=== PATIENT | female | born 1960 ===

== ENCOUNTER 2021-05-23 06:40 | Day surgery (SDC) | payer OTHER | END 2021-05-23 18:55 | disposition home or self-care (01) | LOC: CIR.AMB 06:40 → EDBD 12:15 → CIR.AMB 18:55 | PROVIDERS: ATTEND Orthopaedic Surgery | DX: M75.122 Complete rotator cuff tear or rupture of left shoulder, not specified as traumatic (principal); M75.22 Bicipital tendinitis, left shoulder; M25.312 Other instability, left shoulder; Z20.822 Contact with and (suspected) exposure to COVID-19 ==

== ENCOUNTER 2021-05-23 09:09 | Outpatient (CLI) | payer OTHER | END 2021-05-23 16:12 | disposition home or self-care (01) | LOC: LAB 09:09 | PROVIDERS: ATTEND Orthopaedic Surgery | DX: Z03.818 Encounter for observation for suspected exposure to other biological agents ruled out (principal) ==